=== PATIENT | male | born 1985 | race Caucasian/White ===

== ENCOUNTER 2017-08-29 21:58 | Emergency (ER) | payer BC ==
[2017-08-29 22:12] VITALS: TEMP 98.4; O2SAT 94
[2017-08-29] MEDS ORDERED: GENTAMICIN 0.3% OPHTH OINT 1 APPLIC OPHTH ONE (23:00)
[2017-08-29] MEDS ORDERED: TETRACAINE HCL 0.5% OPHTH SOL 1 DROP OPHTH ONE (23:00)
[2017-08-29] MEDS ORDERED: HYDROCOD/APAP 7.5/325 (ER DISP) #3 TAB ONE (23:14)
--- NOTE | 2017-08-29 23:14 | ED.PDOC ---
History of Present Illness - General Chief Complaint: Eye Problems Stated Complaint: SOMETHING IN THE R EYE Time Seen by Provider: 08/29/17 22:45 Source: patient Exam Limitations: no limitations - History of Present Illness Initial Comments: HAS A FB ON THE RIGHT CORNEA FOR THE PAST 72 HRS. HE IS A PREVENTION COORDINATOR. Timing/Duration: gradual Severity: moderate EENT Location: eye (R) Improving Factors: nothing Worsening Factors: nothing Associated Symptoms: denies symptoms Allergies/Adverse Reactions: Allergies NO KNOWN ALLERGY Allergy (Verified 08/29/17 22:41) Home Medications: Ambulatory Orders Acetaminophen W/ Codeine [Tylenol W/ CODEINE #3] 1 ea PO Q6HRS #12 08/29/17 Review of Systems - Review of Systems Constitutional: States: no symptoms reported EENTM: States: eye pain Respiratory: States: no symptoms reported Cardiology: States: no symptoms reported Gastrointestinal/Abdominal: States: no symptoms reported Genitourinary: States: no symptoms reported Musculoskeletal: States: no symptoms reported Skin: States: no symptoms reported Neurological: States: no symptoms reported Endocrine: States: no symptoms reported Hematologic/Lymphatic: States: no symptoms reported Past Medical History (General) - Vaccination History Hx Tetanus, Diphtheria Vaccination: No Hx Influenza Vaccination: No - Social History Hx Tobacco Use: Yes Feels Threatened In Home Enviroment: No Feels Threatened In a Relationship: No - Female History Patient is a Female of Child Bearing Age (10 -59 yrs old): No Physical Exam - Physical Exam General Appearance: Alert, Other - MODEWRATE DISTRESS Eye Exam: right other - INJECTED CONJUNCTIVA, FB NOTED ON THE RIGHT MARIOLA AT 4 OCLOCK, left normal Ear Exam: bilateral ear: auricle normal Nasal Exam: normal inspection Throat Exam: normal mouth inspection Neck: non-tender Cardiovascular/Respiratory: regular rate, rhythm, normal peripheral pulses, no JVD Abdominal Exam: non-tender Neurologic: no motor/sensory deficits, alert, oriented x 3 Skin Exam: normal color Progress - EKG/XRAY/CT CT Ordered: No Procedures - Eye Procedure Right FB Removal from Eye Procedure: with cottin-tipped swab, with needle, with priti drill Cyclogel 2 Drops Administered: No Antibiotic Oinment/Drps Admin: YES-GENTAMYCIN OINTMENT Progress: REMOVED FB FROM THE CORNEA. LEFT A SMALL RUST RIM-PRITI NOT WORKING WELL. Departure - Departure Clinical Impression: Corneal foreign body with residual material Qualifiers: Encounter type: initial encounter Laterality: right Qualified Code(s): T15.01XA - Foreign body in cornea, right eye, initial encounter Time of Disposition: 23:17 Disposition: Discharge to Home or Self Care Condition: Good Departure Forms: ED Discharge - Pt. Copy, Patient Portal Self Enrollment Instructions: DI for Eye Pain, DI for Corneal Foreign Body-Eye Diet: resume usual diet Activity: increase activity as tolerated Referrals: Javier Gaxiola MD [Primary Care Provider] - 1-2 Weeks Prescriptions: Acetaminophen W/ Codeine [Tylenol W/ CODEINE #3] 1 ea PO Q6HRS #12 Home Medications: Ambulatory Orders Acetaminophen W/ Codeine [Tylenol W/ CODEINE #3] 1 ea PO Q6HRS #12 08/29/17
[2017-08-29] MEDS: HYDROCOD/APAP 7.5/325 (ER DISP) #3 TAB PO ONE (23:21)
[2017-08-29 23:29] VITALS: BP 143/85
== END 2017-08-29 23:29 | disposition home or self-care (01) ==
LOC: ER 21:58
DX: T15.01XA Foreign body in cornea, right eye, initial encounter (principal); X58.XXXA Exposure to other specified factors, initial encounter